=== PATIENT | female | born 1940 | race African-American/Black ===

== ENCOUNTER 2017-02-19 06:42 | Inpatient (IN) | payer OTHER ==
[2017-02-06 09:36] LABS: BASOPHILS 0.5 %; BASOPHILS ABSOLUTE 0.02 10/3/uL (0.0-0.16); EOSINOPHILS 4.4 %; EOSINOPHILS ABSOLUTE 0.19 10/3/uL (0.0-0.53); HEMATOCRIT 40.5 % (36.0-48.0); HEMOGLOBIN 13.4 g/dL (12.0-16.0); LYMPHOCYTES 34.2 %; LYMPHOCYTES ABSOLUTE 1.49 10/3/uL (0.67-4.30); MANUAL DIFF NO %; MEAN CORPUS HGB CONC 33.1 g/dL (32.0-36.0); MEAN CORPUSCULAR HEMOGLOB 27.9 pg (26.0-34.0); MEAN CORPUSCULAR VOLUME 84.2 fL (80-100); MEAN PLATELET VOLUME 8.7 fL (9.2-13.0); MONOCYTES 7.1 %; MONOCYTES ABSOLUTE 0.31 10/3/uL (0.21-1.20); NEUTROPHILS 53.8 %; NEUTROPHILS ABSOLUTE 2.35 10/3/uL (2.02-8.40); PLATELET COUNT 301 10/3/uL (150-400); RBC DISTRIBUTION WIDTH 14.1 % (12.0-16.0); RED CELL COUNT 4.81 10/6/uL (4.0-5.6); WHITE BLOOD CELLS 4.4 10/3/uL (4.5-10.5)
[2017-02-06 09:41] LABS: PARTIAL THROMBO TIME 32.5 SEC (22.5-37.2)
[2017-02-06 09:52] LABS: ALBUMIN 3.8 G/DL (3.5-5.0); ALKALINE PHOSPHATASE 83 U/L (45-117); BUN (BLOOD UREA NITROGEN) 10 MG/DL (6-23); CALCIUM, SERUM 9.6 MG/DL (8.5-10.4); CHLORIDE, SERUM 105 MMOL/L (96-112); CO2 (CARBON DIOXIDE) 30 MMOL/L (24-34); CREATININE 0.63 MG/DL (0.55-1.02); GFR AFRICAN AMERICAN 102 ML/MIN (>=60); GFR NON AFRICAN AMERICAN 88 ML/MIN (>=60); GLOBULIN 3.7 G/DL (2.5-4.1); GLUCOSE, SERUM 101 MG/DL (60-99); POTASSIUM, SERUM 4.1 MMOL/L (3.5-5.3); SGOT(AST) 13 U/L (5-40); SGPT(ALT) 15 U/L (5-65); SODIUM, SERUM 144 MMOL/L (135-148); TOTAL BILIRUBIN 0.4 MG/DL (0-1.2); TOTAL PROTEIN 7.5 G/DL (6.0-8.5)
[2017-02-06 10:34] LABS: ASCORBIC ACID (UR NOT ORDER) 20 (NEG); BILIRUBIN, URINE NEGATIVE (NEG); KETONE, URINE NEGATIVE (NEG); LEUKOCYTE ESTERASE(NOT OR LARGE (NEG); WBC (NOT ORDERED) (RFLEX) 36 (0-5)
--- NOTE | ~2017-02-19 | OP ---
Record Of Operation [facility] [address] [place]. [address] NAME: LALO VIRK : 44 STATUS : ADM IN PAT#: [id number] AGE: 76 ADM/REG DATE : 02/19/17 MR#: [id number] REPORT SERV DATE: 02/20/17 DICTATED BY: FRANCES COOL DATE: 02/19/17 REPORT STATUS : Draft TRANSCRIBED BY: MODL DATE: 02/19/17 DATE OF PROCEDURE: 02/19/2017 PREOPERATIVE DIAGNOSIS: Left hip arthritis. POSTOPERATIVE DIAGNOSIS: Left hip arthritis. PROCEDURE PERFORMED: Left total hip arthroplasty. SURGEON: Frances Cool M.D. FUR PLUCKER: Isacc Fernandez. ANESTHESIA: Spinal with sedation and local infusion. PROCEDURE IN DETAIL: The patient is clearly identified and after obtaining informed consent is brought to the operating room at [facility] where here the patient is induced under general anesthesia and subsequently placed in the left lateral decubitus position. This concluded, the thigh and flank are prepped and draped in the usual manner. A time-out procedure successfully performed and after registering the knee and marking the anatomy through an approximately 4.5 incision, the skin is divided. The fascial planes are divided. The lateral fascia then is divided. Hemostasis is obtained with electrocautery and a Charnley retractor is applied. The piriformis is identified, tagged, divided, and retracted over the sciatic nerve felt deep in the wound. At which point, the mini approach to the hip is formed with dividing the capsule in a mini approach with a cuff of tissues remaining at the femoral side to accomplish repair at the conclusion of the case. Dislocating the hip, end-stage arthritic changes are noted. The tissue surrounding the femoral neck are protected with the Hohmann retractor and the femoral neck cut is made according to preoperative templating. This concluded, the femoral head is removed. The acetabulum is exposed. The labral and fluvial tissues are removed and reaming is performed. Subsequently trialing with the appropriate trial, the permanent acetabular components placed with the [place] [employer]. At which point, the acetabular trial component is then placed. The proximal femur is then addressed. The structures posteromedial to the greater trochanter are removed and this concluded the belkis-keysha canal finder lateralizer and reaming is performed. This concluded, broaching is performed and with excellent fit-fill and stability for the implant trialing is performed finding excellent leg length, stability, no impingement, good kickback, no push-pull, and the lesser trochanter palpably at the appropriate distance from the ischium when compared to preoperative templating. The trials were felt to be appropriate. These are all then removed and the permanent implants are then carefully applied uneventfully. Copious irrigation is then performed with same stability and findings noted after insertion. At which point, the joint then is carefully closed in layers including capsule, piriformis, lateral fascia, deep tissues, and skin. Aquacel dressing is applied and the patient is then allowed to awaken, is placed supine and is returned to the recovery room in stable condition having tolerated the procedure well. ESTIMATED BLOOD LOSS: 200 mL. Record Of Operation [facility] [id number] [facility] [place]. [address] NAME: LALO VIRK : 44 STATUS : ADM IN PAT#: [id number] AGE: 76 ADM/REG DATE : 02/19/17 MR#: [id number] REPORT SERV DATE: 02/20/17 DICTATED BY: FRANCES COOL DATE: 02/19/17 REPORT STATUS : Draft TRANSCRIBED BY: THU DATE: 02/19/17 FLUIDS: 1000 mL. TOURNIQUET TIME: None. PATHOLOGY: Sent specimen. MICROBIOLOGY: None. COMPLICATIONS: None. SPONGE AND NEEDLE COUNTS: Reportedly correct. ANTIBIOTICS: Administered appropriately preoperatively in order to be discontinued within 23 hours. IMPLANTS: DePuy hip system, femur Jefferson, size 5 standard, +1.5/36 metal head. Acetabulum, 56+ 4 neutral liner, and no screws. GUERA/THU Frances Cool M.D. / [id number] CC: Catrachito Saravia M.D.
--- NOTE | ~2017-02-19 | DS ---
Discharge Summary [facility] [address] [place]. [address] NAME: LALO VIRK : 44 STATUS : DIS IN PAT#: [id number] AGE: 76 ADM/REG DATE : 02/19/17 MR#: [id number] REPORT SERV DATE: 02/28/17 DICTATED BY: FRANCES COOL DATE: 02/27/17 REPORT STATUS : Draft TRANSCRIBED BY: MODZaheer DATE: 02/27/17 Data Collection from hospitalization DISCHARGE DIAGNOSES: 1. Left hip arthritis. 2. Hypertension. 3. Diabetes mellitus. 4. Asthma. CONSULTATIONS: None. PROCEDURES PERFORMED: Left total hip arthroplasty, 02/19/2017. PATHOLOGY: Bone and soft tissue, left hip arthroplasty - degenerative changes with focal cyst formation, bone marrow with maturing trilinear hematopoiesis. MEDICATIONS: ProAir two puffs via inhaler as needed, aspirin 81 mg daily, Symbicort two puffs via inhaler twice a day, Lasix 40 mg daily, Combivent one puff via inhaler as needed, Glucophage as instructed, multivitamins one tablet daily, Zofran 4 mg every six hours as needed, Roxicodone 5 mg every four hours as needed, Micro-K 10 mEq twice a day, Diovan 160 mg daily, and Coumadin as directed. She was instructed not to continue Celebrex, [place], or Levaquin. CONDITION ON DISCHARGE: Stable. DISPOSITION: The patient was discharged home on a regular diet with activities as instructed. She would follow up with Devin Siegel, 02/2017, and with Dr. Frances Cool, 04/01/2017. HOSPITAL COURSE: This is a 76-year-old female who has the chief complaint of left hip pain. She has a long history of left hip pain consistent with osteoarthritis. She has failed conservative treatment. Treatment options were discussed, and it was elected to proceed with surgical intervention. She was admitted to the hospital at this time for further evaluation and treatment. Upon admission, she was taken to the operating room where she underwent the above-mentioned procedure. She tolerated this well, and there were no complications. On postop day #1, she did have some discomfort, INR level was 1.2. She was doing well postoperatively. She was evaluated by Physical Therapy and Occupational Therapy. We encouraged her to participate with Physical Therapy. On 02/21/2017, she was wanting to get out more, INR level was 1.6. She did have some dizziness on standing and ambulating. H and H had decreased. LAVELL hose was in place. She was transfused one unit of packed red blood cells. Potassium supplementation was given. Level 1 sliding scale insulin was provided. Discharge planning continued. On 02/23/2017, she was doing well, she was wanting to go home. Discharge instructions were given. Due to her improved and stable condition, she was discharged home with the above-stated instructions. Discharge Summary [facility] [id number] [place]. [address] NAME: LALO VIRK : 44 STATUS : DIS IN PAT#: [id number] AGE: 76 ADM/REG DATE : 02/19/17 MR#: [id number] REPORT SERV DATE: 02/28/17 DICTATED BY: FRANCES COOL DATE: 02/27/17 REPORT STATUS : Draft TRANSCRIBED BY: THU DATE: 02/27/17 Information collected by: Rhonda Ford I submit the above information as my discharge summary. TG/THU Frances Cool M.D. / [id number] CC: Catrachito Saravia M.D.
[~2017-02-19 06:42] MED LIST: ASAB PO; CELEBREX2 PO; COMBIVENT RESPIM4 GM INH; DIOV160 PO; GLUCPH PO; L40 PO; LEVAQUIN750 MG PO; MICRO-K10 MEQ PO; NORCO1 TA2 PO; PROAIR HFA INH; SYMBICORT 160/41 INH INH
[2017-02-20 04:53] LABS: HEMATOCRIT 29.1 % (36.0-48.0); HEMOGLOBIN 9.4 g/dL (12.0-16.0)
[2017-02-20 04:57] LABS: INTERNATIONAL NORMAL RATI 1.2 UNITS (-)
[2017-02-20 04:58] LABS: PROTIME (NOT ORD) 15.3 SEC (12.0-14.5)
[2017-02-20 05:04] LABS: BUN (BLOOD UREA NITROGEN) 11 MG/DL (6-23); CHLORIDE, SERUM 104 MMOL/L (96-112); CO2 (CARBON DIOXIDE) 27 MMOL/L (24-34); CREATININE 0.61 MG/DL (0.55-1.02); GFR AFRICAN AMERICAN 104 ML/MIN (>=60); GFR NON AFRICAN AMERICAN 89 ML/MIN (>=60); SODIUM, SERUM 139 MMOL/L (135-148)
[2017-02-20 05:07] LABS: CALCIUM, SERUM 7.8 MG/DL (8.5-10.4); GLUCOSE, SERUM 141 MG/DL (60-99); POTASSIUM, SERUM 3.2 MMOL/L (3.5-5.3)
[2017-02-21 06:31] LABS: HEMATOCRIT 24.2 % (36.0-48.0)
[2017-02-21 06:41] LABS: INTERNATIONAL NORMAL RATI 1.6 UNITS (-)
[2017-02-21 06:43] LABS: PROTIME (NOT ORD) 19.1 SEC (12.0-14.5)
[2017-02-22 06:15] LABS: HEMATOCRIT 22.7 % (36.0-48.0); HEMOGLOBIN 7.4 g/dL (12.0-16.0)
[2017-02-22 06:17] LABS: INTERNATIONAL NORMAL RATI 1.6 UNITS (-); PROTIME (NOT ORD) 18.5 SEC (12.0-14.5)
[2017-02-22 06:25] LABS: CALCIUM, SERUM 7.9 MG/DL (8.5-10.4); CHLORIDE, SERUM 103 MMOL/L (96-112); CO2 (CARBON DIOXIDE) 30 MMOL/L (24-34); CREATININE 0.54 MG/DL (0.55-1.02); GFR AFRICAN AMERICAN 108 ML/MIN (>=60); GFR NON AFRICAN AMERICAN 93 ML/MIN (>=60); GLUCOSE, SERUM 126 MG/DL (60-99); SODIUM, SERUM 141 MMOL/L (135-148)
[2017-02-22 06:28] LABS: BUN (BLOOD UREA NITROGEN) 7 MG/DL (6-23)
[2017-02-23 06:42] LABS: HEMATOCRIT 24.9 % (36.0-48.0); HEMOGLOBIN 8.3 g/dL (12.0-16.0)
[2017-02-23 06:54] LABS: BUN (BLOOD UREA NITROGEN) 6 MG/DL (6-23); CALCIUM, SERUM 7.8 MG/DL (8.5-10.4); CHLORIDE, SERUM 105 MMOL/L (96-112); CO2 (CARBON DIOXIDE) 29 MMOL/L (24-34); CREATININE 0.55 MG/DL (0.55-1.02); GFR AFRICAN AMERICAN 107 ML/MIN (>=60); GFR NON AFRICAN AMERICAN 92 ML/MIN (>=60); GLUCOSE, SERUM 116 MG/DL (60-99); POTASSIUM, SERUM 3.3 MMOL/L (3.5-5.3); SODIUM, SERUM 144 MMOL/L (135-148)
[2017-02-23 06:54] LABS: INTERNATIONAL NORMAL RATI 1.6 UNITS (-); PROTIME (NOT ORD) 18.6 SEC (12.0-14.5)
[2017-02-23] MEDS ORDERED: OXYCOD PO (16:15)
[2017-02-23] MEDS ORDERED: C5 (16:15)
[2017-02-23] MEDS ORDERED: MULTIPLE VIT PO (16:16)
[2017-02-23] MEDS ORDERED: ZOFRAN4 PO (16:16)
== END 2017-02-23 17:53 | disposition home or self-care (01) | DRG 470 ==
LOC: SDC/OF 06:42 → PACU 13:03 → 1SO 18:55
PROVIDERS: Nurse Practitioner Acute Care; Orthopaedic Surgery
PROC: 0SRB02A Replacement of Left Hip Joint with Metal on Polyethylene Synthetic Substitute, Uncemented, Open Approach (ICD-10-PCS; principal; 2017-02-19 09:15)
PROC: 30233N1 Transfusion of Nonautologous Red Blood Cells into Peripheral Vein, Percutaneous Approach (ICD-10-PCS; 2017-02-22)
DX: M16.12 Unilateral primary osteoarthritis, left hip (principal); D62 Acute posthemorrhagic anemia; E66.9 Obesity, unspecified; E11.9 Type 2 diabetes mellitus without complications; E87.6 Hypokalemia; J45.909 Unspecified asthma, uncomplicated; I10 Essential (primary) hypertension; Z68.32 Body mass index [BMI] 32.0-32.9, adult; Z79.82 Long term (current) use of aspirin; Z79.899 Other long term (current) drug therapy; Z79.84 Long term (current) use of oral hypoglycemic drugs; Z79.891 Long term (current) use of opiate analgesic; Z79.01 Long term (current) use of anticoagulants
CPT/HCPCS: 36415; 71020; 72170; 80048; 80053; 81001; 82962; 85014; 85018; 85025; 85610; 85730; 86850; 86900; 86901; 86920; 87086; 87641; 88304; 88311; 93005; 94640; 97110-GP; 97116-GP; 97161-GP; 97166-GO; A9270-GY; C1776; J0690; J1170; J1885; J2250; J2370; J2405; J2795; J3010; P9016